=== PATIENT | male | born 1985 | race Caucasian/White ===

== ENCOUNTER 2016-08-18 21:41 | Emergency (ER) | payer BC ==
[~2016-08-18 21:41] MED LIST: DICLOFENAC PO; FLEXERIL PO; FLEXERIL10 M1; FLEXERIL10 M1 PO; LOMOTIL TABLET1 TAB PO; NABUMETONE PO; NO MEDICATIONS; PERCOCET 5-3251 TAB PO; PHENERGAN25 MG PO; PRILOSEC PO; VICODIN 5/500 T1 TAB PO; ZOFRAN ODT4 MG PO
[2016-08-18 23:55] LABS: BASOPHIL# 0.1 X10e3 (0-0.3); BASOPHIL% 0.9 % (0-2.5); EOSINOPHIL# 0.2 X10e3 (0-0.7); EOSINOPHIL% 1.6 % (0.0-7.0); HEMATOCRIT 46.1 % (38.0-50.0); HEMOGLOBIN 15.3 gm/dL (13.0-16.0); LYMPHOCYTE# 2.4 X10e3 (1.0-3.5); LYMPHOCYTE% 20.7 % (17.0-45.0); MEAN CELL VOLUME 85.3 FL (83-96); MEAN CORPUSCULAR HEMOGLOBIN 28.3 PG (28-34); MEAN CORPUSCULAR HGB CONC 33.2 g/dL (30-36); MEAN PLATELET VOLUME 8.2 FL (6.5-11.5); MONOCYTE# 0.9 X10e3 (0-1.0); MONOCYTE% 8.2 % (3.0-12.0); NEUTROPHIL# 7.9 X10e3 (1.5-7.1); NEUTROPHIL% 68.6 % (40-75); PLATELET COUNT 282 X10e3 (140-420); RED CELL DISTRIBUTION WIDTH 13.7 % (11.0-15.5); WHITE BLOOD COUNT 11.5 X10e3 (4.0-10.5)
[2016-08-18 23:57] LABS: DIFF IND NO
[2016-08-19 00:23] LABS: ALBUMIN SERUM 4.5 g/dL (3.5-5.0); BILIRUBIN, DIRECT 0.1 mg/dL (0.0-0.2); BILIRUBIN,INDIRECT 0.3 mg/dL (0.0-0.9); BILIRUBIN,TOTAL 0.4 mg/dL (0.2-2.0); BUN/CREATININE RATIO 18.88; CALCIUM SERUM 9.5 mg/dL (8.4-10.2); CREATININE SERUM 0.9 mg/dL (0.6-1.4); GLOM FILT RATE Estimated 114.2 mL/min (>60); POTASSIUM 3.8 mmol/L (3.5-5.1); PROTEIN TOTAL SERUM 8.2 g/dL (6.0-8.3)
== END 2016-08-19 01:58 | disposition home or self-care (01) ==
LOC: CED 21:41
PROVIDERS: Emergency Medicine
DX: K80.50 Calculus of bile duct without cholangitis or cholecystitis without obstruction (principal); F17.200 Nicotine dependence, unspecified, uncomplicated
CPT/HCPCS: 36415; 80048; 80076; 82150; 83690; 85025; 96372; 99284; J1170

== ENCOUNTER → 2016-08-20 | Outpatient (CLI) | payer BC ==
--- NOTE | ~2016-08-20 | US6 ---
[facility] A Service [facility] RADIOLOGY TEXT RESULTS PATIENT: ARLYN BRO LOCATION: [facility] : 87 UNIT #: [id number] AGE: [address]: VIKKI MAHAN APRN SEX: M ORDER DR: [id number] [place] [id number] O MR#: [id number] Acc #: [id number] NAME: ARLYN BRO : 1985 SEX: M STUDY DATE/TIME: 08/20/2016 15:08 UNIT: [facility] ROOM: STUDY DESCRIPTION: US Abdominal Limited Attending Physician: Vikki Mahan Np Referring Physician: Vikki Mahan Np Ordering Physician: Ludivina Albarado M.D. Primary Care Physician: Ludivina Albarado M.D. MEDICAL IMAGING REPORT This report is preliminary unless electronic signature is present. EXAM Right upper quadrant ultrasound 08/20/2016 HISTORY Right upper quadrant abdominal pain for 8 days with nausea and diarrhea for 1 week, right upper quadrant discomfort. FINDINGS The liver demonstrates an increase in echotexture with attenuation of the ultrasound beam characteristic of fatty infiltration. No cystic or solid mass lesions were seen in the liver. The intra and extrahepatic bile ducts are not dilated. The gallbladder is normal with no evidence of cholelithiasis, wall thickening or pericholecystic fluid. The common duct measures 2 mm. The pancreas is poorly visualized due to overlying bowel gas. The right kidney is normal. IMPRESSION 1. Fatty infiltration of the liver. 2. Normal gallbladder. 3. Poor visualization of the pancreas due to overlying bowel gas. Dictated by... Efraín Nuñez M.D. THIS IS AN ELECTRONICALLY VERIFIED REPORT Efraín Nuñez M.D. at 08/21/2016 8:29 AM TAMELA/anna TD: 08/20/2016 17:33 JOB #: [id number] MEDICAL IMAGING REPORT [facility] A Service [facility] RADIOLOGY TEXT RESULTS PATIENT: ARLYN BRO LOCATION: [facility] #: [id number] : 87 UNIT #: [id number] AGE: [address]: VIKKI MAHAN APRN SEX: M ORDER DR: Page 1 of 1
== END | disposition home or self-care (01) ==
LOC: SGUS 15:03
DX: R10.11 Right upper quadrant pain (principal); K76.0 Fatty (change of) liver, not elsewhere classified
CPT/HCPCS: 76705

== ENCOUNTER → 2016-08-27 | Outpatient (CLI) | payer BC ==
--- NOTE | ~2016-08-27 | NM22 ---
[facility] A Service [facility] RADIOLOGY TEXT RESULTS PATIENT: ARLYN BRO LOCATION: [facility] : 87 UNIT #: [id number] AGE: [address]: Hussain Jones III, MD SEX: M ORDER DR: [id number] [place] [id number] [facility]. [place], [place] [address] [id number] O MR#: [id number] Acc #: [id number] NAME: ARLYN BRO : 1985 SEX: M STUDY DATE/TIME: 08/27/2016 8:43 UNIT: [facility] ROOM: STUDY DESCRIPTION: ANIYA Hepatobiliary W GB Pharm Attending Physician: Hussain Jones III, M.D. Referring Physician: Hussain Jones III, M.D. Ordering Physician: Hussain Jones III, M.D. Primary Care Physician: Ludivina Albarado M.D. MEDICAL IMAGING REPORT This report is preliminary unless electronic signature is present EXAM Hepatobiliary scan INDICATION Right upper quadrant abdominal pain radiating to the back beginning 2 weeks ago. PROCEDURE Patient administered 5.82 mCi technetium-labeled Choletec. Imaging of the upper abdomen was performed for 60 minutes then patient was administered 2.5 mcg of Kinevac IV per protocol. COMPARISON Right upper quadrant ultrasound 08/20/2016. FINDINGS Liver shows symmetric extraction and excretion of radiotracer. The gallbladder fills by 30 minutes. Ejection fraction is 86.4% at 30 minutes. IMPRESSION Normal. Dictated by... Sebastian Joel M.D. THIS IS AN ELECTRONICALLY VERIFIED REPORT Sebastian Joel M.D. at 08/28/2016 2:02 PM EED/mann TD: 08/27/2016 15:02 JOB #: [id number] [facility] A Service [facility] RADIOLOGY TEXT RESULTS PATIENT: ARLYN BRO LOCATION: [facility] : 87 UNIT #: [id number] AGE: [address]: Hussain Jones III, MD SEX: M ORDER DR: MEDICAL IMAGING REPORT Page 1 of 1 COPY
== END | disposition home or self-care (01) ==
LOC: CNUC 07:55
DX: R10.11 Right upper quadrant pain (principal)
CPT/HCPCS: 78227; A9537; J2805

== ENCOUNTER → 2016-09-02 | Outpatient (CLI) | payer BC ==
--- NOTE | ~2016-09-02 | CR211 ---
[facility] A Service of [facility] RADIOLOGY TEXT RESULTS PATIENT: ARLYN BRO LOCATION: [facility] : 87 UNIT #: [id number] AGE: [address]: Ludivina Albarado MD SEX: M ORDER DR: [id number] [facility] [address] [place], [place] [address] [id number] O MR#: [id number] Acc #: [id number] NAME: ARLYN BRO : 1985 SEX: M STUDY DATE/TIME: 09/02/2016 16:57 UNIT: [facility] ROOM: STUDY DESCRIPTION: CR Ribs Uni 2 View W PA Ch Rt Attending Physician: Ludivina Albarado M.D. Referring Physician: Ludivina Albarado M.D. Ordering Physician: Ludivina Albarado M.D. Primary Care Physician: Ludivina Albarado M.D. MEDICAL IMAGING REPORT This report is preliminary unless electronic signature is present EXAM Chest and right ribs 09/02 INDICATIONS Right upper quadrant pain and pain with breathing that started 3 weeks ago. No trauma. TECHNIQUE PA view of the chest was obtained in addition to a right rib series. COMPARISON Chest x-ray from 06/16/2012 FINDINGS Lung volumes are low but the lungs are clear. No pneumothorax is seen. Heart size is stable. No rib fracture or other rib lesion identified. IMPRESSION Negative chest x-ray and right rib series. Dictated by... Filiberto Lei Jr., M.D. THIS IS AN ELECTRONICALLY VERIFIED REPORT Filiberto Lei Jr., M.D. at 09/03/2016 3:37 PM RLK/andres TD: 09/03/2016 13:08 JOB #: [id number] MEDICAL IMAGING REPORT Page 1 of 1 COPY
== END | disposition home or self-care (01) ==
LOC: CRAD 16:18
DX: R10.11 Right upper quadrant pain (principal); G89.29 Other chronic pain
CPT/HCPCS: 71101